=== PATIENT | male | born 1960 | race Caucasian/White ===

== ENCOUNTER 2020-11-06 13:24 | Observation (INO) | payer OTHER, SELFPAY ==
[2020-11-06] VITALS (7 sets, daily range): BP systolic 120–176; BP diastolic 70–79; PULSE 53–66; RESP 16–20; TEMP 36.1–36.8; O2SAT 96–98; BMI 28.1
--- NOTE | 2020-11-06 | EEG_ITS ---
The waking background activity consists of a moderate voltage 9 to 10 hertz alpha frequency, intermixed anteriorly with low-voltage fast frequencies. Photic stimulation is without activation. Hyperventilation was omitted. No sleep stages identified. No focal, lateralizing, or paroxysmal discharges seen. IMPRESSION: This waking EEG is within normal limits. MD FARSHAD Jo/ROWENA / [id number]
--- NOTE | ~2020-11-06 | MR_ITS ---
EXAMINATION: MRI BRAIN WITHOUT CONTRAST MRA HEAD WITHOUT CONTRAST MRA NECK WITHOUT AND WITH CONTRAST CLINICAL INFORMATION: Syncope. COMPARISON: Head CT November 06, 2020. TECHNIQUE: Multiplanar multisequence MRI of the brain was performed without contrast. Head MRA was performed without contrast. Neck MRA was performed without and with contrast. A total of 10 mL Gadavist was intravenously administered. Criteria similar to the NASCET were used to grade the degree of stenosis. FINDINGS: Brain MRI: There is no acute infarction, hemorrhage, mass, or extra-axial fluid collection. A few minimal nonspecific foci of T2/FLAIR hyperintensity are seen in the cerebral white matter. The ventricles are normal in size without hydrocephalus. The major arterial flow voids are preserved at the skull base. The orbital contents appear normal. Neck MRA: On the 2-D [id number] sequence, the imaged portions of the common and internal carotid arteries and vertebral arteries demonstrate normal antegrade flow. On the postcontrast images, the neck arteries are patent without stenosis or occlusion. The left vertebral artery arises directly from the aortic arch. Head MRA: No intracranial aneurysm is seen. The intracranial internal carotid arteries appear normal. The anterior cerebral artery, anterior communicating artery, and middle cerebral arteries appear normal. The intradural vertebral arteries and basilar artery appear normal. The posterior cerebral arteries appear normal. MR/MR head/brain wo con IMPRESSION: No acute intracranial abnormality identified. Major head and neck arteries are patent without stenosis or occlusion.
--- NOTE | ~2020-11-06 | CT_ITS ---
EXAMINATION: CT ANGIOGRAM OF THE CHEST WITH AND WITHOUT CONTRAST (CT PULMONARY ANGIOGRAM FOR PE) CLINICAL INFORMATION: Reason for Exam Syncope. PE? COMPARISON: Chest x-ray December 23, 2013 TECHNIQUE: Prior to contrast administration, noncontrast localization images were obtained. Subsequently, multidetector volumetric imaging was performed from the thoracic inlet to below the diaphragms following the administration of 65 mL Omnipaque 350 intravenous contrast. No contrast reaction reported Sagittal, coronal, and MIP oblique sagittal reformatted images were obtained on the CT workstation, uploaded to PACS, and reviewed. This CT examination was performed using dose optimization techniques as appropriate, variously including the following: *Automated exposure control *Adjustment of mA and/or kV according to patient size (this includes techniques or standardized protocols for targeted exams where dose is matched to indication/reason for exam; i.e. extremities or head) *Use of iterative reconstruction technique Total exam dose-length product 286 mGy-cm FINDINGS: QUALITY OF STUDY/CONTRAST BOLUS: Satisfactory. PULMONARY ARTERIES: No central or segmental pulmonary emboli. THORACIC AORTA: No aneurysm or dissection. LUNG: No focal consolidation, nodules or masses. There is mild mosaic attenuation of lung parenchyma suggesting small airways disease. The central bronchial airways are open. There is no bronchiectasis. PLEURA: No pleural effusion or pneumothorax. MEDIASTINUM: Normal heart size. No pericardial effusion. No hilar or mediastinal lymphadenopathy. No evidence of septal bowing or right heart strain. CHEST WALL/AXILLA: No axillary or internal mammary lymphadenopathy. OSSEOUS STRUCTURES: No acute or suspicious osseous abnormality. UPPER ABDOMEN: Unremarkable. No reflux of contrast into the hepatic veins to suggest elevated right heart pressures. CT/CT angio chest PE protocol IMPRESSION: 1. No evidence of pulmonary embolism. 2. Mild mosaic attenuation of lung parenchyma suggesting small airways disease. There is no bronchiectasis. Central bronchial airways are open. VTE: negative
--- NOTE | ~2020-11-06 | MR_ITS ---
EXAMINATION: MRI BRAIN WITHOUT CONTRAST MRA HEAD WITHOUT CONTRAST MRA NECK WITHOUT AND WITH CONTRAST CLINICAL INFORMATION: Syncope. COMPARISON: Head CT November 06, 2020. TECHNIQUE: Multiplanar multisequence MRI of the brain was performed without contrast. Head MRA was performed without contrast. Neck MRA was performed without and with contrast. A total of 10 mL Gadavist was intravenously administered. Criteria similar to the NASCET were used to grade the degree of stenosis. FINDINGS: Brain MRI: There is no acute infarction, hemorrhage, mass, or extra-axial fluid collection. A few minimal nonspecific foci of T2/FLAIR hyperintensity are seen in the cerebral white matter. The ventricles are normal in size without hydrocephalus. The major arterial flow voids are preserved at the skull base. The orbital contents appear normal. Neck MRA: On the 2-D [id number] sequence, the imaged portions of the common and internal carotid arteries and vertebral arteries demonstrate normal antegrade flow. On the postcontrast images, the neck arteries are patent without stenosis or occlusion. The left vertebral artery arises directly from the aortic arch. Head MRA: No intracranial aneurysm is seen. The intracranial internal carotid arteries appear normal. The anterior cerebral artery, anterior communicating artery, and middle cerebral arteries appear normal. The intradural vertebral arteries and basilar artery appear normal. The posterior cerebral arteries appear normal. MR/MR angio head wo con IMPRESSION: No acute intracranial abnormality identified. Major head and neck arteries are patent without stenosis or occlusion.
--- NOTE | ~2020-11-06 | CT_ITS ---
EXAMINATION: CT HEAD WITHOUT CONTRAST CLINICAL INFORMATION: Syncope. COMPARISON: None TECHNIQUE: Contiguous axial imaging was performed from the skull base to vertex without intravenous administration of contrast. This CT examination was performed using dose optimization techniques as appropriate, variously including the following: *Automated exposure control *Adjustment of mA and/or kV according to patient size (this includes techniques or standardized protocols for targeted exams where dose is matched to indication/reason for exam; i.e. extremities or head) *Use of iterative reconstruction technique DLP: 714 mGy-cm FINDINGS: There is no evidence of acute intracranial hemorrhage or territorial infarction. No abnormal mass effect or midline shift is seen. Maynard to white matter differentiation is well preserved. No extra-axial fluid collections are identified. The ventricles are normal in size. There is no abnormal attenuation within the brain parenchyma. The osseous structures and soft tissues are normal. The mastoid air cells and visualized portions of the paranasal sinuses are well aerated. CT/CT head/brain wo con IMPRESSION: No acute intracranial hemorrhage or mass effect.
--- NOTE | ~2020-11-06 | MR_ITS ---
EXAMINATION: MRI BRAIN WITHOUT CONTRAST MRA HEAD WITHOUT CONTRAST MRA NECK WITHOUT AND WITH CONTRAST CLINICAL INFORMATION: Syncope. COMPARISON: Head CT November 06, 2020. TECHNIQUE: Multiplanar multisequence MRI of the brain was performed without contrast. Head MRA was performed without contrast. Neck MRA was performed without and with contrast. A total of 10 mL Gadavist was intravenously administered. Criteria similar to the NASCET were used to grade the degree of stenosis. FINDINGS: Brain MRI: There is no acute infarction, hemorrhage, mass, or extra-axial fluid collection. A few minimal nonspecific foci of T2/FLAIR hyperintensity are seen in the cerebral white matter. The ventricles are normal in size without hydrocephalus. The major arterial flow voids are preserved at the skull base. The orbital contents appear normal. Neck MRA: On the 2-D [id number] sequence, the imaged portions of the common and internal carotid arteries and vertebral arteries demonstrate normal antegrade flow. On the postcontrast images, the neck arteries are patent without stenosis or occlusion. The left vertebral artery arises directly from the aortic arch. Head MRA: No intracranial aneurysm is seen. The intracranial internal carotid arteries appear normal. The anterior cerebral artery, anterior communicating artery, and middle cerebral arteries appear normal. The intradural vertebral arteries and basilar artery appear normal. The posterior cerebral arteries appear normal. MR/MR angio neck wo/w con IMPRESSION: No acute intracranial abnormality identified. Major head and neck arteries are patent without stenosis or occlusion.
--- NOTE | 2020-11-06 07:47 | ECG_ITS ---
Test Reason : SYNCOPY Blood Pressure : / mmHG Vent. Rate : 065 BPM Atrial Rate : 065 BPM P-R Int : 150 ms QRS Dur : 080 ms QT Int : 402 ms P-R-T Axes : 033 031 028 degrees QTc Int : 418 ms Normal sinus rhythm Normal ECG No previous ECGs available Referred By: Lucio Rader Electronically Signed By:KYLE HIGH
[2020-11-06] MEDS: 0.9 % Sodium Chloride 1,000 ML 999 ML IV (14:07)
[2020-11-06 14:29] LABS: MANUAL DIFF FLAG NO
[2020-11-06 14:40] LABS: Prothrombin Time 11.5 SEC (9.9-13.0)
[2020-11-06 14:42] LABS: Partial Thromboplastin Time 34.9 SEC (24.1-38.0)
[2020-11-06 14:55] LABS: Alanine Aminotransferase 68 U/L (0-40); Alkaline Phosphatase 67 U/L (39-117); Anion Gap 14 (12-20); Aspartate Amino Transferase 40 U/L (5-37); Bilirubin Direct 0.2 mg/dL (0.0-0.5); Bilirubin Total 0.6 mg/dL (0.0-1.0); Blood Urea Nitrogen 9 mg/dL (9-16); Carbon Dioxide 22 mmol/L (22-29); Chloride 107 mmol/L (96-108); Creatinine Clr Calc Pharmacy 106.9; Estimated Glomerular Filt Rate > 60; Glucose Random 94 mg/dL (60-115); Potassium 4.6 mmol/L (3.3-5.1); Sodium 138 mmol/L (135-145); Total Protein 6.9 g/dL (6.5-8.0)
[2020-11-06 14:59] LABS: B Type Natriuretic Peptide < 10 pg/mL (<100); Troponin-I High Sensitivity < 3.5 ng/L (<3.5-35.0)
[2020-11-06] MEDS: iohexoL 350 MG/ML 100 ML INFUS..BTL IV (15:29)
[2020-11-06 15:39] LABS: Basophils Percent Auto 0.3 % (0-2); Eosinophils Absolute Auto 0.1 X10*3/uL (0.0-0.4); Hematocrit 42.9 % (42-52); Hemoglobin 15.1 g/dl (14.0-18.0); Imm Gran Abs Auto 0.06 X10*3/uL (0.00-0.03); Imm Gran Pct Auto 0.5 % (0.0-0.4); Lymphocytes Absolute Auto 1.2 X10*3/uL (1.2-4.9); Mean Corpuscular HGB Conc 35.2 g/dl (31.0-36.0); Mean Corpuscular Hemoglobin 31.7 pg (27.0-33.0); Mean Corpuscular Volume 90.1 fL (80-98); Mean Platelet Volume 9.6 fL (9.4-12.4); Monocytes Percent Auto 8.3 % (2-11); Neutrophils Absolute Auto 9.5 X10*3/uL (2.0-8.3); Neutrophils Percent Auto 79.9 % (45-73); Platelet Count 224 X10*3/uL (160-400); Red Blood Count 4.76 X10*6/uL (4.60-5.80); Red Cell Distribution Width 11.9 % (11.0-16.0); White Blood Count 11.9 X10*3/uL (4.8-10.8)
--- NOTE | 2020-11-06 15:50 | ED.SYNCOPE ---
HPI - Syncope General Chief Complaint: Syncope Stated Complaint: * Time Seen by Provider: 11/06/20 13:36 Source: patient Mode of arrival: ambulatory Limitations: no limitations History of Present Illness HPI narrative: Patient brought to the ED for syncopal episode. Patient was typing on the computer and said all of a sudden patient's head slid over the left patient eyes rolled back and patient became clammy and his lips turn blue. states she did not check for pulse but she began doing CPR 2 rounds and hit the patient and his chest twice and then patient came to himself. Denies patient having any shaking or any urinary/bowel incontinence. Patient does not remember what happened. Patient presently has no complaints. Patient denies having any chest pain, abdominal pain, headache or dizziness, before passing out. Patient states he was typing and then when he woke up EMS was in his face. MD complaint: loss of consciousness Related Data Allergies Allergy/AdvReac Type Severity Reaction Status Date / Time No Known Allergies Allergy Verified 11/06/20 13:51 Review of Systems Review of Systems: Yes all other systems are reviewed and are negative Constitutional: Constitutional: Reports as per HPI and Reports no additional constitutional complaints Eyes: Eyes: Reports as per HPI and Reports no additional eye complaints ENT: Reports system reviewed and no additional complaints, except as documented and Reports as per HPI Cardiovascular: Cardiovascular: Reports as per HPI and Reports no additional cardiovascular complaints Respiratory: Respiratory: Reports as per HPI and Reports no additional respiratory complaints Gastrointestinal: Gastrointestinal: Reports as per HPI and Reports no additional gastrointestinal complaints Musculoskeletal: Musculoskeletal: Reports no additional musculoskeletal complaints and Reports as per HPI Neurologic: Reports system reviewed and no additional complaints, except as documented and Reports as per HPI Psychiatric: Psychiatric: Reports no additional psychiatric complaints and Reports as per HPI [facility] Past Medical History Medical History (Updated 11/06/20 @ 17:09 by JULIUS Linares) No known health problems Social History Social History Alcohol intake: never Smoked in Last 30 Days: No Use of substances other than those prescribed or required for medical reasons: No Advance Directives: No Advance Directives Information Provided: No Physical Exam Vital Signs: Vital Signs: Last Vital Signs Temp 98.1 F 11/06/20 16:59 Pulse 60 11/06/20 16:59 Resp 16 11/06/20 16:59 BP 120/71 11/06/20 16:59 Pulse Ox 96 11/06/20 16:59 Body Mass Index 28.1 Const: General: cooperative, healthy appearing, comfortable, no acute distress, well developed, alert, awake and Physically active Orientation/consciousness: patient oriented x3 HENMT: Head: Yes normal to inspection, Yes No palpable skull fracture present, Yes normocephalic and Yes atraumatic Eyes: General: appearance normal, both eyes and all related structures Neck: Neck: Yes normal visual inspection, Yes full ROM, Yes no lymphadenopathy, Yes no meningeal signs, Yes trachea midline, Yes supple and No tender Chest: Chest palpation & inspection: normal inspection of the chest and normal palpation of entire chest wall Resp: Effort & Inspection: normal respiratory effort and able to speak in complete sentences Cardio: Jugular venous distension: no JVD Heart sounds: S1 normal heart sound present and S2 normal heart sound present GI: Inspection: Yes normal to inspection and No abdominal wall ecchymosis Palpation (GI): Soft to palpation, not firm, nontender, no guarding and not rigid : General: No CVA tenderness and Yes no CVA tenderness Back/Spine/Pelvis: Back: no CVA tenderness, No CVA tenderness and No back tenderness Skin: General skin exam: no rashes or lesions noted and elasticity normal Neuro: Other: Negative for facial droop. Negative for slurred speech. All extremities equal strength 5+. [id number] rapid hand movement intact. General: patient oriented x3, gait normal, no meningeal signs and CN's II-XI intact bilaterally Cranial nerves: Yes CN's II-XII intact bilaterally Extrem: General: Yes normal to inspection and Yes full ROM Psych: Appearance: grossly normal, well kempt and not disheveled Course Course Course Narrative: Sound like syncopal episode. Unknown if patient actually and came back due to no pulse P check but . But due to blue lips patient will have chest CTA and EKG. Head CT ordered. Negative for any neuro exam. Patient presently denies any complaints. Reevaluation(s) Reevaluation #1: EKG negative for STEMI. Head CT normal. Chest CT negative for PE. COVID swab negative. Labs are normal. Patient will be admitted to the hospital for syncope. Hospitalist made aware. Time: 17:08 MDM - Syncope [facility] Narrative Medical decision making narrative: Syncope Lab Data Result diagrams: 11/06/20 14:23 11/06/20 14:23 Labs: Lab Results 11/06/20 11/06/20 11/06/20 Range/Units 14:23 14:23 14:23 WBC 11.9 H (4.8-10.8) X10*3/uL RBC 4.76 (4.60-5.80) X10*6/uL Hgb 15.1 (14.0-18.0) g/dl Hct 42.9 (42-52) % MCV 90.1 (80-98) fL MCH 31.7 (27.0-33.0) pg MCHC 35.2 (31.0-36.0) g/dl RDW 11.9 (11.0-16.0) % Plt Count 224 (160-400) X10*3/uL MPV 9.6 (9.4-12.4) fL Immature Gran % (Auto) 0.5 H (0.0-0.4) % Neut % (Auto) 79.9 H (45-73) % Lymph % (Auto) 10.0 L (20-40) % Gooding % (Auto) 8.3 (2-11) % Eos % (Auto) 1.0 (0-4) % Baso % (Auto) 0.3 (0-2) % Lymph # (Auto) 1.2 (1.2-4.9) X10*3/uL Gooding # (Auto) 1.0 (0.1-1.2) X10*3/uL Eos # (Auto) 0.1 (0.0-0.4) X10*3/uL Baso # (Auto) 0.0 (0.0-0.2) X10*3/uL Abs Immat Gran (auto) 0.06 H (0.00-0.03) X10*3/uL Absolute Neuts (auto) 9.5 H (2.0-8.3) X10*3/uL Absolute Nucleated RBC 0.000 (0.0-0.012) X10*3/uL Nucleated RBC % (auto) 0.0 (0.0-0.2) /100WBC PT 11.5 (9.9-13.0) SEC INR 1.0 (0.9-1.1) APTT 34.9 (24.1-38.0) SEC Sodium 138 (135-145) mmol/L Potassium 4.6 (3.3-5.1) mmol/L Chloride 107 (96-108) mmol/L Carbon Dioxide 22 (22-29) mmol/L Anion Gap 14 (12-20) BUN 9 (9-16) mg/dL Creatinine 0.77 (0.5-1.4) mg/dL Estim Creat Clear Calc 106.9 Estimated GFR > 60 Random Glucose 94 (60-115) mg/dL Calcium 9.0 (8.4-10.2) mg/dL Total Bilirubin 0.6 (0.0-1.0) mg/dL Direct Bilirubin 0.2 (0.0-0.5) mg/dL AST 40 H (5-37) U/L ALT 68 H (0-40) U/L Alkaline Phosphatase 67 (39-117) U/L Troponin I High Sens (<3.5-35.0) ng/L B-Natriuretic Peptide (<100) pg/mL Total Protein 6.9 (6.5-8.0) g/dL Albumin 4.0 (3.5-5.0) g/dL 11/06/20 Range/Units 14:23 WBC (4.8-10.8) X10*3/uL RBC (4.60-5.80) X10*6/uL Hgb (14.0-18.0) g/dl Hct (42-52) % MCV (80-98) fL MCH (27.0-33.0) pg MCHC (31.0-36.0) g/dl RDW (11.0-16.0) % Plt Count (160-400) X10*3/uL MPV (9.4-12.4) fL Immature Gran % (Auto) (0.0-0.4) % Neut % (Auto) (45-73) % Lymph % (Auto) (20-40) % Gooding % (Auto) (2-11) % Eos % (Auto) (0-4) % Baso % (Auto) (0-2) % Lymph # (Auto) (1.2-4.9) X10*3/uL Gooding # (Auto) (0.1-1.2) X10*3/uL Eos # (Auto) (0.0-0.4) X10*3/uL Baso # (Auto) (0.0-0.2) X10*3/uL Abs Immat Gran (auto) (0.00-0.03) X10*3/uL Absolute Neuts (auto) (2.0-8.3) X10*3/uL Absolute Nucleated RBC (0.0-0.012) X10*3/uL Nucleated RBC % (auto) (0.0-0.2) /100WBC PT (9.9-13.0) SEC INR (0.9-1.1) APTT (24.1-38.0) SEC Sodium (135-145) mmol/L Potassium (3.3-5.1) mmol/L Chloride (96-108) mmol/L Carbon Dioxide (22-29) mmol/L Anion Gap (12-20) BUN (9-16) mg/dL Creatinine (0.5-1.4) mg/dL Estim Creat Clear Calc Estimated GFR Random Glucose (60-115) mg/dL Calcium (8.4-10.2) mg/dL Total Bilirubin (0.0-1.0) mg/dL Direct Bilirubin (0.0-0.5) mg/dL AST (5-37) U/L ALT (0-40) U/L Alkaline Phosphatase (39-117) U/L Troponin I High Sens < 3.5 (<3.5-35.0) ng/L B-Natriuretic Peptide < 10 (<100) pg/mL Total Protein (6.5-8.0) g/dL Albumin (3.5-5.0) g/dL ECG Data Interpretation: Normal sinus rhythm. Normal EKG Discharge Plan Discharge Clinical Impression: Syncope Patient Disposition: Admitted As Inpatient
[2020-11-06 16:43] LABS: Influenza A PCR NEGATIVE (Negative); Influenza B PCR NEGATIVE (Negative); Resp Syncy Virus RNA Qual PCR NEGATIVE (Negative); SARS COV2 PCR INHOUSE NEGATIVE (Negative)
--- NOTE | 2020-11-06 17:20 | PM.IMHP ---
History of Present Illness Date of Service: 11/06/20 <Josephine Bella NP - Last Filed: 11/06/20 18:15> Chief Complaint: Syncope <Josephine Bella NP - Last Filed: 11/06/20 18:15> 60 year old man presenting after an episode of syncope at home. the patient reports that he is fairly active he walks about 30-45 minutes today, he works full-time, he recently lost about 15 lb, he does not drink heavily or smoke cigarettes. Patient reported that he had been in his usual state of health and had been feeling fine. He got up around 07:00 o'clock. He started working on his computer. His went to do her hair and when she came back around 01:00 o'clock she went in the room to check on him and noted that his arm was shaking and then suddenly his head fell to his right shoulder, his eyes appear to be open but blank and his lips were blue. The patient's said that she hit his chest about 4 times in gave him some breaths and the entire episode likely lasted about 1 minutes. She denied any loss of bowel or bladder, vomiting. The patient does not remember having any symptoms prior to this happening and does not remember anything. Apparently the patient did wake up groggy but he knew what was going on and did not seem postictal. He has no significant medical problems he has only on a multivitamin. 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 Denied chest pain, shortness of breath, nausea, vomiting, diarrhea. His vital signs are stable,labs within acceptable limits. He received a liter of normal saline in the ED. He will be placed on observation for further management of syncope. <Josephine Bella NP - Last Filed: 11/06/20 18:15> Review of Systems Review of Systems: Denies any recent fever chills or decrease in appetite respiratory denies any shortness of breath coverage production cardiovascular denied chest pain gastrointestinal denies any dysphagia abdominal pain nausea vomiting or diarrhea genitourinary denies any dysuria frequency or hematuria musculoskeletal denies any joint pain or swelling neuropsych denies any weakness or seizures all other systems reviewed are negative <Josephine Bella NP - Last Filed: 11/06/20 18:15> [facility] Medical History: Medical History (Updated 11/20/20 @ 16:43 by Rian Sequeira) Arthritis <Josephine Bella NP - Last Filed: 11/06/20 18:15> Family History: Family History (Updated 11/07/20 @ 10:28 by Kehinde Hoyt MD) Father Cardiomyopathy, Onset Age: 54 <Josephine Bella NP - Last Filed: 11/06/20 18:15> Social History: Social History Housing: House Alcohol intake: never Patient Tobacco Use Status: Never used Tobacco service: No Current occupational status: employed Current occupation: registered nurse. <Josephine Bella NP - Last Filed: 11/06/20 18:15> Meds Allergies/Adverse reactions: Allergies Allergy/AdvReac Type Severity Reaction Status Date / Time No Known Allergies Allergy Verified 11/20/20 16:31 <Josephine Bella NP - Last Filed: 11/06/20 18:15> Home medications: Home Medications Medication Instructions Recorded Confirmed Last Taken Type glucosamine sulfate 500 1 cap PO DAILY 11/06/20 11/09/20 11/06/20 History mg-chondroitin 250 mg-msm 250 mg capsule multivitamin 1 tab PO DAILY 11/06/20 11/09/20 11/06/20 History <Josephine Bella NP - Last Filed: 11/06/20 18:15> Physical Exam Vital Signs and Narrative: Vital Signs: Last Vital Signs Temp 98.1 F 11/06/20 16:59 Pulse 60 11/06/20 16:59 Resp 16 11/06/20 16:59 BP 120/71 11/06/20 16:59 Pulse Ox 96 11/06/20 16:59 Body Mass Index 28.1 <Josephine Bella NP - Last Filed: 11/06/20 18:15> Appearing in no acute distress head is normocephalic atraumatic eyes pupils are PERRLA sclera is anicteric mouth throat mucous membranes are intact and moist neck is supple no lymphadenopathy, no JVD noted lung sounds are clear to auscultation heart regular rate rhythm, clear S1, S2 positive bowel sounds, abdomen is soft, nontender neuro patient is alert x3, no focal deficits <Josephine Bella NP - Last Filed: 11/06/20 18:15> Results Labs CBC and Chem 7: : 11/07/20 06:26 11/08/20 06:12 <Josephine Bella NP - Last Filed: 11/06/20 18:15> Labs: Laboratory Results - last 24 hr 11/06/20 11/06/20 11/06/20 14:23 14:23 14:23 MCV 90.1 MCH 31.7 MCHC 35.2 RDW 11.9 Plt Count 224 MPV 9.6 Immature Gran % (Auto) 0.5 H Neut % (Auto) 79.9 H Lymph % (Auto) 10.0 L [place] % (Auto) 8.3 Eos % (Auto) 1.0 Baso % (Auto) 0.3 Lymph # (Auto) 1.2 [place] # (Auto) 1.0 Eos # (Auto) 0.1 Baso # (Auto) 0.0 Abs Immat Gran (auto) 0.06 H Absolute Neuts (auto) 9.5 H Absolute Nucleated RBC 0.000 Nucleated RBC % (auto) 0.0 PT 11.5 INR 1.0 APTT 34.9 Anion Gap 14 Estim Creat Clear Calc 106.9 Estimated GFR > 60 Random Glucose 94 Calcium 9.0 Total Bilirubin 0.6 Direct Bilirubin 0.2 AST 40 H ALT 68 H Alkaline Phosphatase 67 Troponin I High Sens B-Natriuretic Peptide Total Protein 6.9 Albumin 4.0 Coronavirus (PCR) Influenza Type A (PCR) Influenza Type B (PCR) RSV RNA Qual (PCR) 11/06/20 11/06/20 14:23 14:23 MCV MCH MCHC RDW Plt Count MPV Immature Gran % (Auto) Neut % (Auto) Lymph % (Auto) [place] % (Auto) Eos % (Auto) Baso % (Auto) Lymph # (Auto) [place] # (Auto) Eos # (Auto) Baso # (Auto) Abs Immat Gran (auto) Absolute Neuts (auto) Absolute Nucleated RBC Nucleated RBC % (auto) PT INR APTT Anion Gap Estim Creat Clear Calc Estimated GFR Random Glucose Calcium Total Bilirubin Direct Bilirubin AST ALT Alkaline Phosphatase Troponin I High Sens < 3.5 B-Natriuretic Peptide < 10 Total Protein Albumin Coronavirus (PCR) NEGATIVE Influenza Type A (PCR) NEGATIVE Influenza Type B (PCR) NEGATIVE RSV RNA Qual (PCR) NEGATIVE <Josephine Bella NP - Last Filed: 11/06/20 18:15> Imaging Radiologist's Impressions: Impressions Head CT 11/06/20 13:51 IMPRESSION: No acute intracranial hemorrhage or mass effect. Chest CTA 11/06/20 14:11 IMPRESSION: 1. No evidence of pulmonary embolism. 2. Mild mosaic attenuation of lung parenchyma suggesting small airways disease. There is no bronchiectasis. Central bronchial airways are open. VTE: negative <Josephine Bella NP - Last Filed: 11/06/20 18:15> Assessment and Plan (1) Syncope: Status: Deleted <Josephine Bella NP - Last Filed: 11/06/20 18:15> 60 year old man admitted after an episode of syncope with no other significant medical problems Syncope. Cardiogenic versus neurological will monitor on telemetry for arrhythmia Orthostatic blood pressures Urine toxicology EEG Urinalysis IV fluids May consider MRI, echocardiogram after patient seen by Cardiology and Nephrology Mild transaminitis. Unknown etiology Did have some alcohol last night but does not drink on a regular basis No viral symptoms Follow DVT prophylaxis with Lovenox <Josephine Bella NP - Last Filed: 11/06/20 18:15> 60 year old man admitted after an episode of syncope with no other significant medical problems Syncope. Cardiogenic versus neurological will monitor on telemetry for arrhythmia Orthostatic blood pressures Urine toxicology EEG Urinalysis IV fluids May consider MRI, echocardiogram after patient seen by Cardiology and Nephrology Mild transaminitis. Unknown etiology Did have some alcohol last night but does not drink on a regular basis No viral symptoms Follow DVT prophylaxis with Lovenox I saw and examined patient and discussed findings, assessment, plan and disposition with midlevel provider and I agree with the above. <Red Jo MD - Last Filed: 12/02/20 21:22> Quality Stroke Does the patient have a stroke diagnosis?: No <Josephine Bella NP - Last Filed: 11/06/20 18:15> VTE Prior VTE?: No <Josephine Bella NP - Last Filed: 11/06/20 18:15> VTE Risk Level:: Medical - moderate - high <Josephine Bella NP - Last Filed: 11/06/20 18:15> VTE Device Contraindication: Treatment Not Indicated <Josephine Bella NP - Last Filed: 11/06/20 18:15> VTE Drug Contraindication: N/A - Med Ordered <Josephine Bella NP - Last Filed: 11/06/20 18:15>
--- NOTE | 2020-11-06 18:33 | PC.NURSE ---
call for report, nurse will call back
--- NOTE | 2020-11-06 18:35 | PHA.MEDREC ---
Pharmacy Consult ? Medication Reconciliation Pharmacy has completed the medication reconciliation.
[2020-11-06] MEDS: Enoxaparin Sodium 40 MG/0.4 ML SYRINGE SUBCUT (20:59)
[2020-11-06] MEDS: 0.9 % Sodium Chloride Flush 3 ML SYRINGE IVFLUSH (21:06)
[2020-11-07] VITALS (7 sets, daily range): BP systolic 127–146; BP diastolic 61–74; PULSE 50–68; RESP 18–20; TEMP 36.1–37; O2SAT 95–97; BMI 29.2
[2020-11-07 06:38] LABS: Amphetamine Screen Urine Not Detected (Not Detect); Barbiturates, Urine Not Detected (Not Detect); Benzodiazepines Screen Urine Not Detected (Not Detect); Cannabinoid Screen Urine Not Detected (Not Detect); Cocaine Screen Urine Not Detected (Not Detect); Fentanyl, urine Not Detected (Not Detect); Opiate Screen Urine Not Detected (Not Detect); Phencyclidine Screen Urine Not Detected (Not Detect)
[2020-11-07 06:59] LABS: MANUAL DIFF FLAG NO
[2020-11-07 07:37] LABS: Alanine Aminotransferase 59 U/L (0-40); Albumin Level 3.8 g/dL (3.5-5.0); Alkaline Phosphatase 59 U/L (39-117); Anion Gap 9 (12-20); Aspartate Amino Transferase 31 U/L (5-37); Bilirubin Direct 0.2 mg/dL (0.0-0.5); Bilirubin Total 0.8 mg/dL (0.0-1.0); Blood Urea Nitrogen 9 mg/dL (9-16); Calcium 8.9 mg/dL (8.4-10.2); Carbon Dioxide 27 mmol/L (22-29); Chloride 105 mmol/L (96-108); Estimated Glomerular Filt Rate > 60; Glucose Random 96 mg/dL (60-115); Potassium 4.4 mmol/L (3.3-5.1); Sodium 137 mmol/L (135-145); Total Protein 6.3 g/dL (6.5-8.0)
--- NOTE | 2020-11-07 08:41 | MHC.CM.PN ---
CM met with Patient at bedside and addressed BUI, providing him with the original and placing a copy on the chart. Patient lives in a house with his /HCP and he is functionally independent. Home is the goal for dc and CM has initiated and will follow for dc planning. PCP is Dr. Marco Antonio Ulloa.
[2020-11-07 09:00] LABS: Basophils Percent Auto 0.5 % (0-2); Eosinophils Absolute Auto 0.3 X10*3/uL (0.0-0.4); Eosinophils Percent Auto 3.9 % (0-4); Hematocrit 43.6 % (42-52); Hemoglobin 14.9 g/dl (14.0-18.0); Imm Gran Abs Auto 0.04 X10*3/uL (0.00-0.03); Imm Gran Pct Auto 0.5 % (0.0-0.4); Lymphocytes Absolute Auto 2.4 X10*3/uL (1.2-4.9); Lymphocytes Percent Auto 29.2 % (20-40); Mean Corpuscular HGB Conc 34.2 g/dl (31.0-36.0); Mean Corpuscular Hemoglobin 31.2 pg (27.0-33.0); Mean Corpuscular Volume 91.4 fL (80-98); Mean Platelet Volume 9.9 fL (9.4-12.4); Monocytes Percent Auto 11.9 % (2-11); Neutrophils Absolute Auto 4.4 X10*3/uL (2.0-8.3); Platelet Count 227 X10*3/uL (160-400); Red Blood Count 4.77 X10*6/uL (4.60-5.80); Red Cell Distribution Width 12.2 % (11.0-16.0); White Blood Count 8.2 X10*3/uL (4.8-10.8)
[2020-11-07] MEDS: 0.9 % Sodium Chloride Flush 3 ML SYRINGE IVFLUSH (09:25)
--- NOTE | 2020-11-07 10:23 | P.CONCA_ITS ---
History of Present Illness History of Present Illness Date of Service: 11/07/20 Chief complaint: Syncope Narrative: This is a cardiology consultation regarding syncope. Patient does not have any known cardiac problems. He denies any coronary disease myocardial infarction or cardiomyopathy or in fact any cardiac issues whatsoever. 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 He also walks more than 30 minutes a day without any issues. He was apparently sitting as usual in front of computer. Then when his returned from going outside, she saw him shaking his arm. Then apparently his head was on the right shoulder and then he was appearing blank and lips were blue. Then it seems she gave some chest thumps and breaths. Not clear if he lost a pulse or not. No anginal-type chest pain or shortness of breath or in fact any other cardiac complaints. Today he states that he is actually back to his normal self. Blood pressure is on the higher side but he states that he is not normally a hypertensive. Not a known diabetic. No known coronary disease or in fact any other cardiac issues. His father in his 50s while shoveling snow and autopsy was performed and that apparently showed normal coronaries but thickened heart and he was told to have cardiomyopathy. Review of Systems Review of Systems: Yes all other systems are reviewed and are negative Cardiovascular: Cardiovascular: Reports as per HPI, Reports no additional cardiovascular complaints, Denies acrocyanosis, Denies cool extremities, Denies painful fingertips, Denies chest pain, Denies chest pain at rest, Denies pratima phoresis, Reports syncope, Denies irregular heart rhythm, Denies claudication, Denies leg edema, Denies lightheadedness, Denies palpitations and Denies dyspnea Respiratory: Respiratory: Denies dyspnea Neurologic: Reports syncope Endocrine: Endocrine: Denies palpitations [facility] Past Medical History Medical History (Updated 11/07/20 @ 10:29 by Kehinde Hoyt MD) Arthritis Family History Family History (Updated 11/07/20 @ 10:28 by Kehinde Hoyt MD) Father Cardiomyopathy, Onset Age: 54 Social History Social History Alcohol intake: never Patient Tobacco Use Status: Never used Tobacco Smoked in Last 30 Days: No Use of substances other than those prescribed or required for medical reasons: No Advance Directives: No Advance Directives Information Provided: No service: No Current occupational status: employed [employer] Allergies Allergy/AdvReac Type Severity Reaction Status Date / Time No Known Allergies Allergy Verified 11/06/20 13:51 Active Medications: Current Medications Generic Name Dose Route Start Last Admin Trade Name Stephany PRN Reason Stop Dose Admin Acetaminophen 650 mg 11/06/20 17:29 Acetaminophen 325 Mg Tablet PO Q6H PRN Pain, Mild (Pain Scale 1-3) Enoxaparin Sodium 40 mg 11/06/20 19:00 11/06/20 20:59 Enoxaparin Sodium 40 Mg/0.4 Ml Syringe SUBCUT 40 mg Q24H ASHWIN Administration Ondansetron HCl 4 mg 11/06/20 17:29 Ondansetron Hcl 4 Mg/2 Ml Vial IVPUSH Q8H PRN Nausea and Vomiting Sodium Chloride 3 ml 11/07/20 00:00 11/07/20 09:25 0.9 % Sodium Chloride Flush 3 Ml Syringe IVFLUSH 3 ml QSHIFT ASHWIN Administration Home Medications Medication Instructions Recorded Confirmed Last Taken Type glucosamine sulfate 500 1 cap PO DAILY 11/06/20 11/06/20 11/06/20 History mg-chondroitin 250 mg-msm 250 mg capsule multivitamin 1 tab PO DAILY 11/06/20 11/06/20 11/06/20 History Physical Exam Vital Signs: Vital Signs: Last Vital Signs Temp 98.3 F 11/06/20 23:25 Pulse 61 11/06/20 23:54 Resp 19 11/06/20 23:54 BP 176/79 H 11/06/20 23:54 Pulse Ox 98 11/06/20 23:54 Body Mass Index 29.2 Const: General: cooperative and no acute distress HENMT: Other: Unremarkable Neck: Neck: Yes normal visual inspection Chest: Chest palpation & inspection: normal inspection of the chest Resp: Auscultation: clear to auscultation bilaterally, no crackles and no wheezes Cardio: Jugular venous distension: no JVD Palpation: normal PMI Heart sounds: S1 normal heart sound present, S2 normal heart sound present, no gallops, no murmurs and no rubs GI: Palpation (GI): Soft to palpation Back/Spine/Pelvis: Other: unremarkable Skin: General skin exam: no rashes or lesions noted Neuro: Cranial nerves: Yes Other cranial nerve findings present Extrem: General: Yes no clubbing, cyanosis or edema Psych: Mental Status: other Results Labs and Meds Result diagrams: 11/07/20 06:26 11/07/20 06:26 Lab results: Laboratory Results - last 24 hr 11/06/20 11/06/20 11/06/20 14:23 14:23 14:23 WBC 11.9 H RBC 4.76 Hgb 15.1 Hct 42.9 MCV 90.1 MCH 31.7 MCHC 35.2 RDW 11.9 Plt Count 224 MPV 9.6 Immature Gran % (Auto) 0.5 H Neut % (Auto) 79.9 H Lymph % (Auto) 10.0 L [place] % (Auto) 8.3 Eos % (Auto) 1.0 Baso % (Auto) 0.3 Lymph # (Auto) 1.2 [place] # (Auto) 1.0 Eos # (Auto) 0.1 Baso # (Auto) 0.0 Abs Immat Gran (auto) 0.06 H Absolute Neuts (auto) 9.5 H Absolute Nucleated RBC 0.000 Nucleated RBC % (auto) 0.0 PT 11.5 INR 1.0 APTT 34.9 Sodium 138 Potassium 4.6 Chloride 107 Carbon Dioxide 22 Anion Gap 14 BUN 9 Creatinine 0.77 Estim Creat Clear Calc 106.9 Estimated GFR > 60 Random Glucose 94 Calcium 9.0 Total Bilirubin 0.6 Direct Bilirubin 0.2 AST 40 H ALT 68 H Alkaline Phosphatase 67 Troponin I High Sens B-Natriuretic Peptide Total Protein 6.9 Albumin 4.0 Urine Opiates Screen Urine Fentanyl Screen Ur Barbiturates Screen Ur Phencyclidine Scrn Ur Amphetamines Screen U Benzodiazepines Scrn Urine Cocaine Screen U Marijuana (THC) Screen Coronavirus (PCR) Influenza Type A (PCR) Influenza Type B (PCR) RSV RNA Qual (PCR) 11/06/20 11/06/20 11/07/20 14:23 14:23 05:44 WBC RBC Hgb Hct MCV MCH MCHC RDW Plt Count MPV Immature Gran % (Auto) Neut % (Auto) Lymph % (Auto) [place] % (Auto) Eos % (Auto) Baso % (Auto) Lymph # (Auto) [place] # (Auto) Eos # (Auto) Baso # (Auto) Abs Immat Gran (auto) Absolute Neuts (auto) Absolute Nucleated RBC Nucleated RBC % (auto) PT INR APTT Sodium Potassium Chloride Carbon Dioxide Anion Gap BUN Creatinine Estim Creat Clear Calc Estimated GFR Random Glucose Calcium Total Bilirubin Direct Bilirubin AST ALT Alkaline Phosphatase Troponin I High Sens < 3.5 B-Natriuretic Peptide < 10 Total Protein Albumin Urine Opiates Screen Not Detected Urine Fentanyl Screen Not Detected Ur Barbiturates Screen Not Detected Ur Phencyclidine Scrn Not Detected Ur Amphetamines Screen Not Detected U Benzodiazepines Scrn Not Detected Urine Cocaine Screen Not Detected U Marijuana (THC) Screen Not Detected Coronavirus (PCR) NEGATIVE Influenza Type A (PCR) NEGATIVE Influenza Type B (PCR) NEGATIVE RSV RNA Qual (PCR) NEGATIVE 11/07/20 11/07/20 06:26 06:26 WBC 8.2 RBC 4.77 Hgb 14.9 Hct 43.6 MCV 91.4 MCH 31.2 MCHC 34.2 RDW 12.2 Plt Count 227 MPV 9.9 Immature Gran % (Auto) 0.5 H Neut % (Auto) 54.0 Lymph % (Auto) 29.2 [place] % (Auto) 11.9 H Eos % (Auto) 3.9 Baso % (Auto) 0.5 Lymph # (Auto) 2.4 [place] # (Auto) 1.0 Eos # (Auto) 0.3 Baso # (Auto) 0.0 Abs Immat Gran (auto) 0.04 H Absolute Neuts (auto) 4.4 Absolute Nucleated RBC 0.000 Nucleated RBC % (auto) 0.0 PT INR APTT Sodium 137 Potassium 4.4 Chloride 105 Carbon Dioxide 27 Anion Gap 9 L BUN 9 Creatinine 0.79 Estim Creat Clear Calc 106.0 Estimated GFR > 60 Random Glucose 96 Calcium 8.9 Total Bilirubin 0.8 Direct Bilirubin 0.2 AST 31 ALT 59 H Alkaline Phosphatase 59 Troponin I High Sens B-Natriuretic Peptide Total Protein 6.3 L Albumin 3.8 Urine Opiates Screen Urine Fentanyl Screen Ur Barbiturates Screen Ur Phencyclidine Scrn Ur Amphetamines Screen U Benzodiazepines Scrn Urine Cocaine Screen U Marijuana (THC) Screen Coronavirus (PCR) Influenza Type A (PCR) Influenza Type B (PCR) RSV RNA Qual (PCR) ECG Interpretation: EKG shows sinus rhythm at 65/Min; no significant ST-T changes; normal ID/QTc. Telemetry shows sinus rhythm. Imaging Radiologist's impression: Impressions Head CT 11/06/20 13:51 IMPRESSION: No acute intracranial hemorrhage or mass effect. Chest CTA 11/06/20 14:11 IMPRESSION: 1. No evidence of pulmonary embolism. 2. Mild mosaic attenuation of lung parenchyma suggesting small airways disease. There is no bronchiectasis. Central bronchial airways are open. VTE: negative Assessment and Plan (1) Syncope and collapse: Status: Acute Uncertain etiology for patient's symptoms. Possibilities include felicia-arrhythmias, tachy-arrhythmia, transient ischemic attack, seizure among others. In the chest CT scan, described to have normal heart size, no pericardial effusion. We will get a formal echocardiogram for further evaluation. Continue telemetry monitoring. He also needs further brain imaging including MRI of brain/MRA of neck. Neurology consultation is pending. We will follow up with you. Procedures Date of Service Date of Service: 11/07/20
--- NOTE | 2020-11-07 10:30 | CA_ITS ---
Transthoracic Echocardiogram Patient (Last, First, Middle): Jerrell Kauffman Walter Gender: Male Date of : 1960 Age: 60 Procedure Date: 11/07/2020 Procedure Type: Transthoracic Echocardiogram Location: [facility] [place] Height: 170.18 cm Weight: 81.65 kg BSA: 1.93 m2 Heart Rate: bpm BP: 176 / 79 mmHg Area Sales Manager: Referring MD: Kehinde Hoyt MD Symptoms: Syncope Study Quality: Fair ECG Rhythm: Sinus Conclusions: - The left ventricular systolic function is normal. The visually estimated ejection fraction is between 65-70%. - No obvious valvular pathology seen on this study. Findings Left Ventricle Normal left ventricular cavity size. There is normal left ventricular wall thickness. The left ventricular systolic function is normal. The visually estimated ejection fraction is between 65-70%. There is no evidence of regional wall motion abnormalities. Diastolic function is normal for age. Right Ventricle Normal right ventricular cavity size and systolic function. Atria Both atria are normal in size. Aortic Valve There is a normal trileaflet aortic valve. There is no aortic valve stenosis. There is trace (trivial) aortic valve regurgitation. Mitral Valve The mitral valve appears normal. There is no mitral valve regurgitation. There is no mitral valve stenosis. Pulmonic Valve The pulmonic valve was not well visualized. There is trace pulmonic valve regurgitation. Tricuspid Valve Normal tricuspid valve structure. There is trace tricuspid valve regurgitation. The pulmonary artery systolic pressure is normal. Great Vessels The aortic annulus, sinuses of valsalva, and asc aorta are normal in size. Venous The inferior vena cava is normal in size and collapses greater than 50% with inspiration. Pericardium/Pleural There is no evidence of pericardial effusion. Prior Study Comparison No prior study available for comparison. Recommendations, Care & Conclusions No obvious valvular pathology seen on this study. Measurements 2D Linear Measurements IVSd: 1.13 0.6-0.9/0.6-1.0 cm LVIDd: 4.53 3.9-5.3/4.2-5.9 cm LVIDd Index: 2.35 2.4-3.2/2.2-3.1 cm/m2 LVIDs: 2.51 2.0-3.6 cm LVPWd: 1.04 0.7-1.1 cm Ao Root: 2.90 2.1-3.5 cm LA Diam: 3.20 2.7-3.8/3.0-4.0 cm LAIDs Index: 1.66 1.5-2.3 cm/m2 LV Mass: 216.12 67-162/88-224 g LV Mass Index: 111.98 43-95/49-115 g/m2 LVOT Diam: 2.10 3.0+(-)1.3 cm Mitral Valve MV Pk E: 0.86 MV PK A: 0.76 MV Decel Time: 229.00 E/A: 1.10 E'Lateral: 11.90 E'Medial: 9.90 E/E' Med: 8.70 E/E' Lat: 7.20 PHT: 67.00 MVA PHT: 3.28 Decel [place]: 3.76 Aortic Valve AoV Pk Spencer: 1.88 AoV Mn [place]: 1.25 AoV VTI: 0.39 AoV Pk Grad: 14.00 Aov Mn Grad: 7.00 NATALIE Cont.VTI: 2.04 LVOT LVOT Pk [place]: 1.17 LVOT Mn [place]: 0.66 LVOT VTI: 0.23 LVOT Pk Grad: 5.00 LVOT Mn Grad: 2.00 LVOT Diam: 2.10 LVOT Area: 3.46 Diastolic Function MV Pk E: 0.86 MV Pk A: 0.76 E/A: 1.10 E'Medial: 9.90 E/E' Med: 8.70 E' Laterial: 11.90 E/E' Lat: 7.20 Right Ventricle TAPSE (mm): 28.00 TVS' Spencer: 14.90 Tricuspid Valve TR Pk Spencer: 2.43 TR Pk Grad: 24.00 Great Vessels Aorta Ao Root-2D: 2.90 2.0-3.7 cm Ao Asc: 3.40 2.1-3.4 cm Pulmonary Valve PV Pk Spencer: 1.41 Peak PV Grad: 8.00 Updated in Other Vendor System with Status of Final Kehinde Hoyt MD electronically signed on 11/07/2020 4:03:30 PM with status of Final
--- NOTE | 2020-11-07 10:30 | PM.IMPN ---
Progress Note: A&P (1) Syncope and collapse: Status: Acute Assessment and Plan: 60 year old man admitted after an episode of syncope with no other significant medical problems Syncope.? Cardiogenic versus neurological no further episodes no arrhythmia overnight no Orthostasis Urine toxicology neg EEG pending echo pending MRI/MRA pending Urinalysis IV fluids ? Mild transaminitis.? Unknown etiology, tredning down No viral symptoms Follow DVT prophylaxis with Lovenox Subjective Subjective Date of Service: 11/07/20 Interval History: Follow up syncope OOB bed ambulating no complaints of pain Physical Exam Vital Signs: Vital Signs: Last Vital Signs Temp 98.3 F 11/06/20 23:25 Pulse 61 11/06/20 23:54 Resp 19 11/06/20 23:54 BP 176/79 H 11/06/20 23:54 Pulse Ox 98 11/06/20 23:54 Body Mass Index 29.2 Appearing in no acute distress lung sounds are clear to auscultation heart regular rate rhythm, clear S1, S2 positive bowel sounds, abdomen is soft, nontender neuro patient is alert x3, no focal deficits Objective Data Current Medications Generic Name Dose Route Start Last Admin Trade Name Freq PRN Reason Stop Dose Admin Acetaminophen 650 mg 11/06/20 17:29 Acetaminophen 325 Mg Tablet PO Q6H PRN Pain, Mild (Pain Scale 1-3) Enoxaparin Sodium 40 mg 11/06/20 19:00 11/06/20 20:59 Enoxaparin Sodium 40 Mg/0.4 Ml Syringe SUBCUT 40 mg Q24H ASHWIN Administration Ondansetron HCl 4 mg 11/06/20 17:29 Ondansetron Hcl 4 Mg/2 Ml Vial IVPUSH Q8H PRN Nausea and Vomiting Sodium Chloride 3 ml 11/07/20 00:00 11/07/20 09:25 0.9 % Sodium Chloride Flush 3 Ml Syringe IVFLUSH 3 ml QSHIFT ASHWIN Administration Labs CBC & Chem 7: 11/07/20 06:26 11/07/20 06:26 Labs: Laboratory Results - last 24 hr 11/06/20 11/06/20 11/06/20 14:23 14:23 14:23 MCV 90.1 MCH 31.7 MCHC 35.2 RDW 11.9 Plt Count 224 MPV 9.6 Immature Gran % (Auto) 0.5 H Neut % (Auto) 79.9 H Lymph % (Auto) 10.0 L [place] % (Auto) 8.3 Eos % (Auto) 1.0 Baso % (Auto) 0.3 Lymph # (Auto) 1.2 [place] # (Auto) 1.0 Eos # (Auto) 0.1 Baso # (Auto) 0.0 Abs Immat Gran (auto) 0.06 H Absolute Neuts (auto) 9.5 H Absolute Nucleated RBC 0.000 Nucleated RBC % (auto) 0.0 PT 11.5 INR 1.0 APTT 34.9 Anion Gap 14 Estim Creat Clear Calc 106.9 Estimated GFR > 60 Random Glucose 94 Calcium 9.0 Total Bilirubin 0.6 Direct Bilirubin 0.2 AST 40 H ALT 68 H Alkaline Phosphatase 67 Troponin I High Sens B-Natriuretic Peptide Total Protein 6.9 Albumin 4.0 Urine Opiates Screen Urine Fentanyl Screen Ur Barbiturates Screen Ur Phencyclidine Scrn Ur Amphetamines Screen U Benzodiazepines Scrn Urine Cocaine Screen U Marijuana (THC) Screen Coronavirus (PCR) Influenza Type A (PCR) Influenza Type B (PCR) RSV RNA Qual (PCR) 11/06/20 11/06/20 11/07/20 14:23 14:23 05:44 MCV MCH MCHC RDW Plt Count MPV Immature Gran % (Auto) Neut % (Auto) Lymph % (Auto) [place] % (Auto) Eos % (Auto) Baso % (Auto) Lymph # (Auto) [place] # (Auto) Eos # (Auto) Baso # (Auto) Abs Immat Gran (auto) Absolute Neuts (auto) Absolute Nucleated RBC Nucleated RBC % (auto) PT INR APTT Anion Gap Estim Creat Clear Calc Estimated GFR Random Glucose Calcium Total Bilirubin Direct Bilirubin AST ALT Alkaline Phosphatase Troponin I High Sens < 3.5 B-Natriuretic Peptide < 10 Total Protein Albumin Urine Opiates Screen Not Detected Urine Fentanyl Screen Not Detected Ur Barbiturates Screen Not Detected Ur Phencyclidine Scrn Not Detected Ur Amphetamines Screen Not Detected U Benzodiazepines Scrn Not Detected Urine Cocaine Screen Not Detected U Marijuana (THC) Screen Not Detected Coronavirus (PCR) NEGATIVE Influenza Type A (PCR) NEGATIVE Influenza Type B (PCR) NEGATIVE RSV RNA Qual (PCR) NEGATIVE 11/07/20 11/07/20 06:26 06:26 MCV 91.4 MCH 31.2 MCHC 34.2 RDW 12.2 Plt Count 227 MPV 9.9 Immature Gran % (Auto) 0.5 H Neut % (Auto) 54.0 Lymph % (Auto) 29.2 [place] % (Auto) 11.9 H Eos % (Auto) 3.9 Baso % (Auto) 0.5 Lymph # (Auto) 2.4 [place] # (Auto) 1.0 Eos # (Auto) 0.3 Baso # (Auto) 0.0 Abs Immat Gran (auto) 0.04 H Absolute Neuts (auto) 4.4 Absolute Nucleated RBC 0.000 Nucleated RBC % (auto) 0.0 PT INR APTT Anion Gap 9 L Estim Creat Clear Calc 106.0 Estimated GFR > 60 Random Glucose 96 Calcium 8.9 Total Bilirubin 0.8 Direct Bilirubin 0.2 AST 31 ALT 59 H Alkaline Phosphatase 59 Troponin I High Sens B-Natriuretic Peptide Total Protein 6.3 L Albumin 3.8 Urine Opiates Screen Urine Fentanyl Screen Ur Barbiturates Screen Ur Phencyclidine Scrn Ur Amphetamines Screen U Benzodiazepines Scrn Urine Cocaine Screen U Marijuana (THC) Screen Coronavirus (PCR) Influenza Type A (PCR) Influenza Type B (PCR) RSV RNA Qual (PCR) Quality Stroke Does the patient have a stroke diagnosis?: No VTE Prior VTE?: No VTE Risk Level:: Medical - moderate - high VTE Device Contraindication: Treatment Not Indicated VTE Drug Contraindication: N/A - Med Ordered
--- NOTE | 2020-11-07 12:11 | PM.NEUROCN ---
History of Present Illness Data of Consult Service Date: 11/07/20 Primary Care Provider: Marco Antonio Ulloa MD [facility] Reason for consult: Syncopal episode, possible seizure This is a previously healthy 60-year-old man with nor existing medical problems son no medication. He was sitting on his computer doing some work and his talked with him briefly after she returrned from her had resting appointment and then she went into the kitchen came back a few minutes later to ask him something and found him not able to talk and express himself, his eyes were blazed and his head drop to the right side and he was limp all over. She did not check his pulse. She tried breathing because he was gasping and thumb two-month the chest a few times and he finally woke up. The early childhood aide classroom were called and he was brought 10. Momentarily he was confused and then was okay. There is no previous history of syncope or seizure for cardiac disease. He had been feeling fine area. She did not notice any seizure activity, tongue biting or incontinence. There was no prolonged postictal period. A total down time could be one to one and a half minutes Review of Systems Review of Systems: Denies any recent fever chills or decrease in appetite respiratory denies any shortness of breath coverage production cardiovascular denied chest pain gastrointestinal denies any dysphagia abdominal pain nausea vomiting or diarrhea genitourinary denies any dysuria frequency or hematuria musculoskeletal denies any joint pain or swelling neuropsych denies any weakness or seizures all other systems reviewed are negative Yes all other systems are reviewed and are negative Constitutional: Constitutional: Reports as per HPI and Reports no additional constitutional complaints Eyes: Eyes: Reports as per HPI and Reports no additional eye complaints ENT: Reports system reviewed and no additional complaints, except as documented and Reports as per HPI Cardiovascular: Cardiovascular: Reports as per HPI, Reports no additional cardiovascular complaints, Denies acrocyanosis, Denies cool extremities, Denies painful fingertips, Denies chest pain, Denies chest pain at rest, Denies diaphoresis, Reports syncope, Denies irregular heart rhythm, Denies claudication, Denies leg edema, Denies lightheadedness, Denies palpitations and Denies dyspnea Respiratory: Respiratory: Reports as per HPI, Reports no additional respiratory complaints and Denies dyspnea Gastrointestinal: Gastrointestinal: Reports as per HPI and Reports no additional gastrointestinal complaints Musculoskeletal: Musculoskeletal: Reports no additional musculoskeletal complaints and Reports as per HPI Neurologic: Reports system reviewed and no additional complaints, except as documented, Reports as per HPI and Reports syncope Psychiatric: Psychiatric: Reports no additional psychiatric complaints and Reports as per HPI Endocrine: Endocrine: Denies palpitations PMFSH Past Medical History Medical History (Updated 11/07/20 @ 10:29 by Kehinde Hoyt MD) Arthritis Family History Family History (Updated 11/07/20 @ 10:28 by Kehinde Hoyt MD) Father Cardiomyopathy, Onset Age: 54 Social History Social History Alcohol intake: never Patient Tobacco Use Status: Never used Tobacco Smoked in Last 30 Days: No Use of substances other than those prescribed or required for medical reasons: No Advance Directives: No Advance Directives Information Provided: No service: No Current occupational status: employed Meds Allergies Allergy/AdvReac Type Severity Reaction Status Date / Time No Known Allergies Allergy Verified 11/06/20 13:51 Active Medications: Current Medications Generic Name Dose Route Start Last Admin Trade Name Freq PRN Reason Stop Dose Admin Acetaminophen 650 mg 11/06/20 17:29 Acetaminophen 325 Mg Tablet PO Q6H PRN Pain, Mild (Pain Scale 1-3) Enoxaparin Sodium 40 mg 11/06/20 19:00 11/06/20 20:59 Enoxaparin Sodium 40 Mg/0.4 Ml Syringe SUBCUT 40 mg Q24H ASHWIN Administration Ondansetron HCl 4 mg 11/06/20 17:29 Ondansetron Hcl 4 Mg/2 Ml Vial IVPUSH Q8H PRN Nausea and Vomiting Sodium Chloride 3 ml 11/07/20 00:00 11/07/20 09:25 0.9 % Sodium Chloride Flush 3 Ml Syringe IVFLUSH 3 ml QSHIFT ASHWIN Administration Home Medications Medication Instructions Recorded Confirmed Last Taken Type glucosamine sulfate 500 1 cap PO DAILY 11/06/20 11/06/20 11/06/20 History mg-chondroitin 250 mg-msm 250 mg capsule multivitamin 1 tab PO DAILY 11/06/20 11/06/20 11/06/20 History Physical Exam Vital Signs: Vital Signs: Last Vital Signs Temp 98.3 F 11/06/20 23:25 Pulse 61 11/06/20 23:54 Resp 19 11/06/20 23:54 BP 176/79 H 11/06/20 23:54 Pulse Ox 98 11/06/20 23:54 Body Mass Index 29.2 Const: General: cooperative, healthy appearing, comfortable, no acute distress, well developed, alert, awake and Physically active Orientation/consciousness: patient oriented x3 HENMT: Other: Unremarkable Head: Yes normal to inspection, Yes No palpable skull fracture present, Yes normocephalic and Yes atraumatic Eyes: General: appearance normal, both eyes and all related structures Neck: Neck: Yes normal visual inspection, Yes full ROM, Yes no lymphadenopathy, Yes no meningeal signs, Yes trachea midline, Yes supple and No tender Chest: Chest palpation & inspection: normal inspection of the chest and normal palpation of entire chest wall Resp: Effort & Inspection: normal respiratory effort and able to speak in complete sentences Auscultation: clear to auscultation bilaterally, no crackles and no wheezes Cardio: Jugular venous distension: no JVD Palpation: normal PMI Heart sounds: S1 normal heart sound present, S2 normal heart sound present, no gallops, no murmurs and no rubs GI: Inspection: Yes normal to inspection and No abdominal wall ecchymosis Palpation (GI): Soft to palpation, not firm, nontender, no guarding and not rigid : General: No CVA tenderness and Yes no CVA tenderness Back/Spine/Pelvis: Other: unremarkable Back: no CVA tenderness, No CVA tenderness and No back tenderness Skin: General skin exam: no rashes or lesions noted and elasticity normal Neuro: Other: Normal neurological examination with no focal findings General: patient oriented x3, gait normal, no meningeal signs and CN's II-XI intact bilaterally Cranial nerves: Yes CN's II-XII intact bilaterally and Yes Other cranial nerve findings present Extrem: General: Yes normal to inspection, Yes full ROM and Yes no clubbing, cyanosis or edema Psych: Appearance: grossly normal, well kempt and not disheveled Mental Status: other Results Labs CBC & Chem 7: 11/07/20 06:26 11/07/20 06:26 Labs: Short CBC 11/06/20 11/07/20 Range/Units 14:23 06:26 WBC 11.9 H 8.2 (4.8-10.8) X10*3/uL Hgb 15.1 14.9 (14.0-18.0) g/dl Hct 42.9 43.6 (42-52) % Plt Count 224 227 (160-400) X10*3/uL BMP 11/06/20 11/07/20 14:23 06:26 Sodium 138 137 Potassium 4.6 4.4 Chloride 107 105 Carbon Dioxide 22 27 BUN 9 9 Creatinine 0.77 0.79 Calcium 9.0 8.9 Liver Function 11/06/20 11/07/20 Range/Units 14:23 06:26 Total Bilirubin 0.6 0.8 (0.0-1.0) mg/dL Direct Bilirubin 0.2 0.2 (0.0-0.5) mg/dL AST 40 H 31 (5-37) U/L ALT 68 H 59 H (0-40) U/L Alkaline Phosphatase 67 59 (39-117) U/L Albumin 4.0 3.8 (3.5-5.0) g/dL Assessment and Plan (1) Syncope and collapse: Status: Acute Syncopal episode throat out cardiogenic causes. Rule out seizures. Recommendation: EEG, cardiac monitoring, MRI of the brain 60 year old man admitted after an episode of syncope with no other significant medical problems Syncope.? Cardiogenic versus neurological no further episodes no arrhythmia overnight no Orthostasis Urine toxicology neg EEG pending echo pending MRI/MRA pending Urinalysis IV fluids ? Mild transaminitis.? Unknown etiology, tredning down No viral symptoms Follow DVT prophylaxis with Lovenox Procedures Date of Service Date of Service: 11/07/20
[2020-11-07] MEDS: Enoxaparin Sodium 40 MG/0.4 ML SYRINGE SUBCUT (19:23)
[2020-11-08 04:00] VITALS: BP 136/66; PULSE 52; RESP 20; TEMP 36.5; O2SAT 96
[2020-11-08 07:19] VITALS: BP 131/74; PULSE 51; RESP 18; TEMP 36.4; O2SAT 95
[2020-11-08] MEDS: 0.9 % Sodium Chloride Flush 3 ML SYRINGE IVFLUSH (07:56)
[2020-11-08 07:58] VITALS: BP 131/74; PULSE 51
[2020-11-08 07:59] VITALS: BP 124/73; BP 138/73; PULSE 50; PULSE 52
[2020-11-08 08:17] LABS: Anion Gap 13 (12-20); Blood Urea Nitrogen 8 mg/dL (9-16); Calcium 8.6 mg/dL (8.4-10.2); Carbon Dioxide 23 mmol/L (22-29); Chloride 106 mmol/L (96-108); Creatinine Clr Calc Pharmacy 113.1; Estimated Glomerular Filt Rate > 60; Glucose Random 95 mg/dL (60-115); Potassium 4.4 mmol/L (3.3-5.1); Sodium 138 mmol/L (135-145)
--- NOTE | 2020-11-08 10:33 | P.PNCA_ITS ---
Subjective Subjective Date of Service: 11/08/20 Interval history: No further symptoms. Review of Systems Review of Systems Yes all other systems are reviewed and are negative Cardiovascular: Reports as per HPI, Reports no additional cardiovascular complaints, Denies acrocyanosis, Denies cool extremities, Denies painful fingertips, Denies chest pain, Denies chest pain at rest, Denies diaphoresis, Reports syncope, Denies irregular heart rhythm, Denies claudication, Denies leg edema, Denies lightheadedness, Denies palpitations and Denies dyspnea Respiratory: Denies dyspnea Reports syncope Endocrine: Denies palpitations Physical Exam Vital Signs: Last Vital Signs Temp 97.5 F 11/08/20 07:19 Pulse 52 11/08/20 07:59 Resp 18 11/08/20 07:19 BP 124/73 11/08/20 07:59 Pulse Ox 95 11/08/20 07:19 Body Mass Index 29.2 Const General: cooperative and no acute distress HENNE Other: Unremarkable Neck Neck: Yes normal visual inspection Chest Chest palpation & inspection: normal inspection of the chest Resp Auscultation: clear to auscultation bilaterally, no crackles and no wheezes Cardio Jugular venous distension: no JVD Palpation: normal PMI Heart sounds: S1 normal heart sound present, S2 normal heart sound present, no gallops, no murmurs and no rubs GI Palpation (GI): Soft to palpation Back/Spine/Pelvis Other: unremarkable Skin General skin exam: no rashes or lesions noted Neuro Cranial nerves: Yes Other cranial nerve findings present Extrem General: Yes no clubbing, cyanosis or edema Psych Mental Status: other Results Labs and Meds Result diagrams: 11/07/20 06:26 11/08/20 06:12 Lab results: Laboratory Results - last 24 hr 11/08/20 06:12 Sodium 138 Potassium 4.4 Chloride 106 Carbon Dioxide 23 Anion Gap 13 BUN 8 L Creatinine 0.74 Estim Creat Clear Calc 113.1 Estimated GFR > 60 Random Glucose 95 Calcium 8.6 Imaging Radiologist's impression: Impressions Head MRA 11/07/20 12:22 IMPRESSION: No acute intracranial abnormality identified. Major head and neck arteries are patent without stenosis or occlusion. Brain MRI 11/07/20 12:34 IMPRESSION: No acute intracranial abnormality identified. Major head and neck arteries are patent without stenosis or occlusion. Neck MRA 11/07/20 12:50 IMPRESSION: No acute intracranial abnormality identified. Major head and neck arteries are patent without stenosis or occlusion. Progress Note: A&P Assessment and plan (1) Syncope and collapse: Status: Acute Assessment and Plan: Uncertain etiology for patient's symptoms. Possibilities include felicia- arrhythmias, tachy-arrhythmia, transient ischemic attack, seizure among others. In the chest CT scan, described to have normal heart size, no pericardial effusion. Unremarkable echocardiogram. Telemetry shows sinus rhythm. May be discharged from cardiac. We will arrange outpatient stress test, 14 day Holter and sleep study. Fall Risk Details Current Medications: Current Medications Generic Name Dose Route Start Last Admin Trade Name Freq PRN Reason Stop Dose Admin Acetaminophen 650 mg 11/06/20 17:29 Acetaminophen 325 Mg Tablet PO Q6H PRN Pain, Mild (Pain Scale 1-3) Enoxaparin Sodium 40 mg 11/06/20 19:00 11/07/20 19:23 Enoxaparin Sodium 40 Mg/0.4 Ml Syringe SUBCUT 40 mg Q24H ASHWIN Administration Ondansetron HCl 4 mg 11/06/20 17:29 Ondansetron Hcl 4 Mg/2 Ml Vial IVPUSH Q8H PRN Nausea and Vomiting Sodium Chloride 3 ml 11/07/20 00:00 11/08/20 07:56 0.9 % Sodium Chloride Flush 3 Ml Syringe IVFLUSH 3 ml QSHIFT ASHWIN Administration Time Spent With Patient Time: Total time spent is greater than 50% in coordination of care (as documented) at patient's floor/unit and/or counseling patient: Time with patient: less than 15 minutes Progress Note: Quality Stroke Does the patient have a stroke diagnosis?: No Procedures Date of Service Date of Service: 11/08/20
[2020-11-08 11:22] VITALS: BP 131/68; PULSE 50; RESP 17; TEMP 36.1; O2SAT 96
--- NOTE | 2020-11-08 12:30 | P.DS_ITS ---
DS: Providers Provider Date of Service: 11/08/20 Date of admission: 11/06/20 17:28 Date of discharge: 11/08/20 Primary care physician: Marco Antonio Ulloa MD Admitting clinician: Josephine Bella Attending physician on admission: Heri Winn Consults: 11/06/20 18:06 Consult to Cardiology Routine Consulting Provider: Kehinde Hoyt Reason for consultation: syncope Has provider been notified: No Consult to Neurology Routine Consulting Provider: [facility] Reason for consultation: ? seizure Has provider been notified: No Attending physician on discharge: Heri Winn Discharging clinician: Josephine Bella DS: Diagnosis Discharge Diagnosis (1) Syncope and collapse: Status: Acute DS: Medications Discharge Medications Home Medications: Home Medications Medication Instructions Recorded Confirmed glucosamine sulfate 500 1 cap PO DAILY 11/06/20 11/06/20 mg-chondroitin 250 mg-msm 250 mg capsule multivitamin 1 tab PO DAILY 11/06/20 11/06/20 DS: Summary Hospital Course Hospital Course: HP as per admitting provider 60 year old man presenting after an episode of syncope at home. ? the patient reports that he is fairly active he walks about 30-45 minutes today, he works full-time, he recently lost about 15 lb, he does not drink heavily or smoke cigarettes. Patient reported that he had been in his usual state of health and had been feeling fine.? He got up around 07:00 o'clock.? He started working on his computer.? His went to do her hair and when she came back around 01:00 o'clock she went in the room to check on him and noted that his arm was shaking and then suddenly his head fell to his right shoulder, his eyes appear to be open but blank and his lips were blue.? The patient's said that she hit his chest about 4 times in gave him some breaths and the entire episode likely lasted about 1 minutes.? She denied any loss of bowel or bladder, vomiting.? The patient does not remember having any symptoms prior to this happening and does not remember anything.? Apparently the patient did wake up groggy but he knew what was going on and did not seem postictal.? He has no significant medical problems he has only on a multivitamin. 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 Denied chest pain, shortness of breath, nausea, vomiting, diarrhea.? His vital signs are stable,labs within acceptable limits. He received a liter of normal saline in the ED. He will be placed on observation for further management of syncope . Syncope. No further episodes of syncope noted. No obvious etiology. He had MRI, MRA both negative for acute abnormalities. Echocardiogram showed EF of 65-70% with no wall motion abnormalities. EEG was normal. He remained hemodynamically stable. He will follow up with cardiology for stress test, sleep study and holter. Time Spent with Patient Time attestation: Total time spent providing and/or coordinating discharge services: Discharge coordination time: Greater than 30 minutes Quality: Stroke Does the patient have a stroke diagnosis?: No Physical Exam Vital Signs: Vital Signs: Last Vital Signs Temp 97 F 11/08/20 11:22 Pulse 50 11/08/20 11:22 Resp 17 11/08/20 11:22 BP 131/68 11/08/20 11:22 Pulse Ox 96 11/08/20 11:22 Body Mass Index 29.2 Appearing in no acute distress head is normocephalic atraumatic eyes pupils are PERRLA sclera is anicteric mouth throat mucous membranes are intact and moist neck is supple no lymphadenopathy, no JVD noted lung sounds are clear to auscultation heart regular rate rhythm, clear S1, S2 positive bowel sounds, abdomen is soft, nontender neuro patient is alert x3, no focal deficits DS: Data Data Completed and Pending Labs on day of discharge: Laboratory Results - last 24 hr 11/08/20 06:12 Sodium 138 Potassium 4.4 Chloride 106 Carbon Dioxide 23 Anion Gap 13 BUN 8 L Creatinine 0.74 Estim Creat Clear Calc 113.1 Estimated GFR > 60 Random Glucose 95 Calcium 8.6 Discharge Plan Discharge Anticipated Discharge Date/Time: 11/08/20 12:27 Patient Disposition: Home, Self-Care Discharge Diagnosis: Syncope Referrals: Marco Antonio Ulloa MD [Primary Care Provider] - 1 Week Kehinde Hoyt MD [Physician] - 1 Week (Out patient stress test, holter monitor and sleep study ) Discharge Medications: Continued multivitamin Tablet 1 tab PO DAILY RF: 0 glucosamine [id number] 500-250-250 mg Capsule 1 cap PO DAILY RF: 0 Discharge Orders: Discharge Order (Routine); Ordered 11/08/20 Ordered By: Josephine Bella Diet: advance to usual diet Activity on Discharge: As tolerated Stand Alone Forms: Patient Portal Discharge page, Work/School Release Care Plan Goals: No further episodes of syncope Health Concerns: Syncope Plan of Treatment: Follow up with you primary care doctor as needed Return to the ED if you have further episodes of syncope Assessment: See discharge summary Discharge Date/Time: 11/08/20 13:01
--- NOTE | 2020-11-08 12:46 | MHC.CM.PN ---
CM has been medically cleared for dc to home today, no services.
== END 2020-11-08 13:01 | disposition home or self-care (01) ==
LOC: HO.ED 17:09 → HO.EDOVER 17:50 → HO.IMC 18:29
PROVIDERS: Physician Assistant; Admitting Provider Nurse Practitioner Acute Care; Emergency Provider Internal Medicine; PCP Family Medicine; Visit Provider Family Medicine
DX: R55 Syncope and collapse (principal); R74.01 Elevation of levels of liver transaminase levels; I10 Essential (primary) hypertension; Z20.822 Contact with and (suspected) exposure to COVID-19; Z79.899 Other long term (current) drug therapy
CPT/HCPCS: 0241U; 36415; 70450; 70544; 70549; 70551; 71275; 80048; 80053; 80076; 80307; 82248; 83880; 84484; 85025; 85610; 85730; 93005; 93306; 95816; 96361; 96372; 96374; 96375; 99219; 99285; A9585; J1650; Q9967

== ENCOUNTER 2023-04-21 16:45 | Emergency (ER) | payer OTHER, SELFPAY ==
--- NOTE | ~2023-04-21 | XR_ITS ---
EXAMINATION: XR RIBS, RIGHT CLINICAL INFORMATION: Fall, pain. COMPARISON: Chest radiograph 12/23/2013. TECHNIQUE: 3 views of the right ribs were obtained. FINDINGS: Lungs are clear. No consolidation, pneumothorax, or pleural effusion. The cardiomediastinal silhouette and pulmonary vasculature are normal. Osseous structures are unremarkable. Ribs are intact. No fractures are identified. XR/XR ribs RT min 3V w CXR1V IMPRESSION: No acute cardiopulmonary findings. No evidence of displaced rib fractures.
--- NOTE | ~2023-04-21 | CT_ITS ---
EXAMINATION: CT cervical spine wo IV con, CT head/brain wo IV con INDICATION INFORMATION: Reason for Exam fall, unknown head strike, R neck pain COMPARISON: CT head 11/06/2020 TECHNIQUE: Separate noncontrast CT examinations of the head and cervical spine were performed. Coronal and sagittal images were created for each examination at the technologist workstation. This CT examination was performed using dose optimization techniques as appropriate, variously including the following: *Automated exposure control *Adjustment of mA and/or kV according to patient size (this includes techniques or standardized protocols for targeted exams where dose is matched to indication/reason for exam; i.e. extremities or head) *Use of iterative reconstruction technique DLP: 1101 mGy-cm FINDINGS: Head: Mild to moderate global cerebral volume loss with somewhat disproportionate ventriculomegaly relative to the sulci that can be correlated clinically for superimposed commuting hydrocephalus. No territorial loss of summers-white differentiation. Patchy calcific plaque of the carotid siphons. No acute intracranial hemorrhage or extra-axial fluid collection. No mass lesion, significant mass effect, or herniation pattern. Fusiform prominence of several extraocular muscles, most pronounced of the inferior rectus muscles with some intramuscular fat deposition more pronounced on the right, which may be seen in the setting of thyroid eye disease and can be correlated with thyroid function tests. Trace patchy paranasal sinus mucosal thickening. The mastoid air cells are well aerated. Osseous structures are intact. Cervical spine: Motion degraded slightly compromising diagnostic assessment. No prevertebral soft tissue swelling. The craniocervical junction is intact. Straightening of the normal cervical lordosis. There is no significant spondylolisthesis. Vertebral body heights are normal without acute compression fracture or traumatic posterior element subluxation. No suspicious osseous lesion. C6 and C6-C7 disc height loss and mild cervical spondylosis. Please note spinal canal patency is not well assessed on CT in the absence of intrathecal contrast. Normal appearance of the paraspinal soft tissues. Visualized lung apices are clear. Normal appearance of the thyroid gland. CT/CT cervical spine wo IV con IMPRESSION: 1. No CT evidence of acute intracranial injury. 2. Fusiform prominence of several extraocular muscles, most pronounced of the inferior rectus muscles with some intramuscular fat deposition more pronounced on the right, which may be seen in the setting of thyroid eye disease and can be correlated with thyroid function tests. 3. No evidence of acute osseous injury in the cervical spine within limitations of motion artifact.
--- NOTE | ~2023-04-21 | XR_ITS ---
EXAMINATION: XR LUMBOSACRAL SPINE CLINICAL INFORMATION: Fall. Pain. COMPARISON: None available. TECHNIQUE: Three views of the lumbosacral spine. FINDINGS: No evidence of acute compression deformity or traumatic subluxation. Moderate to severe intervertebral disc height loss and facet arthropathy at L5-S1. Large multilevel anterior osteophytes. Symmetric SI joints. Pubic symphysis and pelvic rami are maintained. No significant paraspinal soft tissue abnormality. XR/XR lumbar spine 2-3V IMPRESSION: 1. No acute compression deformity or malalignment. 2. Moderate to severe lumbar spondylosis at L5-S1. 3. Large multilevel anterior osteophytes.
[2023-04-21 17:32] VITALS: BP 181/89; PULSE 60; RESP 16; TEMP 36.3; O2SAT 97; BMI 31.0
--- NOTE | 2023-04-21 17:33 | ED.FALL ---
[facility] - Fall General Chief Complaint: Fall Stated Complaint: fell 04/20, nausea and kidney pain Time Seen by Provider: 04/21/23 22:43 Source: patient Mode of arrival: ambulatory History of Present Illness HPI Narrative: 62-year-old male who presents after having fallen at approximately 17:30 on the night of 04/20, denies any loss of consciousness, does not take any prescription medications and denies having struck the edge of a hand rail or a step. States that he took some Aleve this morning and then had some episodes of feeling a little bit nauseous with lightheadedness and denies any other medical history. Related Data Home Medications Medication Instructions Recorded Confirmed glucosamine sulfate 500 1 cap PO DAILY 11/06/20 11/09/20 mg-chondroitin 250 mg-msm 250 mg capsule multivitamin 1 tab PO DAILY 11/06/20 11/09/20 Allergies Allergy/AdvReac Type Severity Reaction Status Date / Time No Known Allergies Allergy Verified 04/21/23 17:35 Review of Systems Review of Systems: Pertinent positives and negatives as stated in HPI [facility] Past Medical History Source: nursing notes reviewed Medical History Arthritis Family History Family History Father Cardiomyopathy, Onset Age: 54 Social History Social History Housing: House Alcohol intake: never Patient Tobacco Use Status: Never used Tobacco Advance Directives: Yes Advance Directives Information Provided: No Advance Directives on File: No service: No Current occupational status: employed Current occupation: registered nurse. Physical Exam Vital Signs: Vital Signs: Last Vital Signs Temp 97.4 F 04/21/23 17:32 Pulse 60 04/21/23 17:32 Resp 16 04/21/23 17:32 BP 181/89 H 04/21/23 17:32 Pulse Ox 97 04/21/23 17:32 O2 Del Method Room Air 04/21/23 17:32 BMI result Body Mass Index 31.0 VITAL SIGNS: Reviewed. GENERAL: Well developed, well nourished, in no acute distress. HEAD: Normocephalic/atraumatic EYES: PERRLA, EOMI EARS: Ext canals without abnormality NOSE: Nares patent bilateral OROPHARYNX: no oral lesions noted, posterior pharynx clear NECK: Supple, no adenopathy LUNGS: Normal breath sounds. No adventitious sounds or accessory muscle use. SpO2<97> CARDIOVASCULAR: Regular rate and rhythm without noted murmurs ABDOMEN: Soft, non-tender, non-distended with bowel sounds. PELVIS: Stable, nontender BACK/RIGHT FLANK: There is no noted ecchymosis or skin disturbance, no erythema/induration, no obvious crepitus or deformity. Patient does have tenderness to palpation of the posterior lower ribs. MUSCULOSKELETAL: No tenderness, deformities, or effusions noted on gross inspection. EXTREMITIES: No cyanosis, clubbing or edema. SKIN: Inspection of the skin reveals no rashes NEUROLOGIC: Alert and oriented x 4. Strength and sensation to light touch were grossly intact x 4. Course Course Course Narrative: RME:?62 yo male here for evaluation of right flank pain occuring after slip and fall on ice yesterday. states he slipped on ice, fell backwards landing on his right flank. States he does not believe he hit his head however reports right-sided neck pain. No LOC. Not on AC. Workup today with right flank pain and began feeling nauseous and lightheaded around 10:00 a.m.. PE: Right cervical paraspinal muscle tenderness to palpation. right lumbar paraspinal muscle tenderness to palpation. No midline spinous tenderness or step-off deformity. exam nonfocal. Ambulating with steady gait. Labs, xrs and CT ordered in triage. Full HPI, ROS and PE to be performed by the primary ED provider. Medical Decision Making Medical Decision Making MDM Narrative: 62-year-old male with history and clinical presentation, DDX: Soft tissue contusion, musculoskeletal pain, low clinical suspicion for intracranial or cervical spine acute injury I reviewed all investigations and hematologic indices are negative for leukocytosis/left shift/anemia/thrombocytopenia. Coagulation studies are within normal limits. Chemistry indices are negative for any derangements, there is no MAO/electrolyte lipase derangement. CT of the head is negative for intracranial hemorrhage or mass effect and cervical spine CT scan is negative for acute fracture or subluxation. L-spine x-ray negative for acute pathology and rib x-ray series negative for evidence to suggest fracture. I did discuss the sensitivity/specificity chest x-ray for rib fractures. In my interpretation patient likely has soft tissue contusions with associated musculoskeletal pain and the light nausea and lightheadedness are likely associated with the fall. I did provide the patient with strict return precautions and he is otherwise stable for discharge to home. Differential Diagnosis Differential Diagnoses: The differential diagnosis associated with the presentation includes Please see the discussion above Admission/Observation Consideration of admission/observation: Escalation of care including admission/observation considered Please see the discussion above Lab Data MDM Lab Attestation statement: I reviewed the patient's lab results. Please see the discussion above 04/21/23 18:24 04/21/23 18:24 Labs: Lab Results 04/21/23 Range/Units 18:24 WBC 8.0 (4.8-10.8) X10*3/uL RBC 4.80 (4.60-5.80) X10*6/uL Hgb 15.5 (14.0-18.0) g/dl Hct 44.3 (42.0-52.0) % MCV 92.3 (80.0-98.0) fL MCH 32.3 (27.0-33.0) pg MCHC 35.0 (31.0-36.0) g/dl RDW 13.2 (11.0-16.0) % Plt Count 206 (160-400) X10*3/uL MPV 9.1 L (9.4-12.4) fL Immature Gran % (Auto) 0.3 (0.0-0.4) % Neut % (Auto) 60.4 (45-73) % Lymph % (Auto) 25.3 (20-40) % [place] % (Auto) 9.4 (2-11) % Eos % (Auto) 3.8 (0-4) % Baso % (Auto) 0.8 (0-2) % Lymph # (Auto) 2.0 (1.2-4.9) X10*3/uL [place] # (Auto) 0.8 (0.1-1.2) X10*3/uL Eos # (Auto) 0.3 (0.0-0.4) X10*3/uL Baso # (Auto) 0.1 (0.0-0.2) X10*3/uL Abs Immat Gran (auto) 0.02 (0.00-0.03) X10*3/uL Absolute Neuts (auto) 4.8 (2.0-8.3) x10*3/uL Absolute Nucleated RBC 0.000 (0.0-0.012) X10*3/uL Nucleated RBC % (auto) 0.0 (0.0-0.2) /100WBC PT 12.1 (11.1-13.3) SEC INR 1.0 (0.9-1.1) Sodium 135 (135-145) mmol/L Potassium 4.0 (3.3-5.1) mmol/L Chloride 103 (96-108) mmol/L Carbon Dioxide 24 (22-29) mmol/L Anion Gap 12 (12-20) BUN 9 (9-16) mg/dL Creatinine 0.77 (0.5-1.4) mg/dL Estim Creat Clear Calc 109.0 Estimated GFR > 60 Random Glucose 97 (60-115) mg/dL Calcium 9.4 D (8.4-10.2) mg/dL Magnesium 2.2 (1.6-2.6) mg/dL Lipase 29 (8-78) U/L Radiology Impression Discussion of test interpretation with radiology: I have reviewed the radiologist's reading. Radiologist Impression: Please see the discussion above External Record Review External record reviewed: Outpatient record, Prior outpatient labs and Prior outpatient radiology Discharge Plan Discharge Clinical Impression: Contusion of soft tissue, Fall, Back pain, Nausea, Light-headedness Patient Disposition: Home, Self-Care Instructions: Contusion in Adults (ED), Lightheadedness (ED), Back Pain (ED), Fall Prevention (ED) Additional Instructions: 1. Resume all home medications as prescribed. 2. Recommend continued use Tylenol/ibuprofen as needed for pain control. 3. Recommend follow-up with your primary care doctor in the next 1-2 days. 4. Do not hesitate to return to the emergency room for any worsening of your symptoms, to include hematuria, significant bruising at the right flank, difficulty breathing. Prescriptions: No Action multivitamin Tablet 1 tab PO DAILY glucosamine [id number]-mum 500-250-250 mg Capsule 1 cap PO DAILY Referrals: Marco Antonio Ulloa MD [Primary Care Provider] -
[2023-04-21 18:28] LABS: MANUAL DIFF FLAG NO
[2023-04-21 18:31] LABS: Basophils Absolute Auto 0.1 X10*3/uL (0.0-0.2); Basophils Percent Auto 0.8 % (0-2); Eosinophils Absolute Auto 0.3 X10*3/uL (0.0-0.4); Eosinophils Percent Auto 3.8 % (0-4); Hematocrit 44.3 % (42.0-52.0); Hemoglobin 15.5 g/dl (14.0-18.0); Imm Gran Abs Auto 0.02 X10*3/uL (0.00-0.03); Imm Gran Pct Auto 0.3 % (0.0-0.4); Lymphocytes Percent Auto 25.3 % (20-40); Mean Corpuscular Hemoglobin 32.3 pg (27.0-33.0); Mean Corpuscular Volume 92.3 fL (80.0-98.0); Mean Platelet Volume 9.1 fL (9.4-12.4); Monocytes Absolute Auto 0.8 X10*3/uL (0.1-1.2); Monocytes Percent Auto 9.4 % (2-11); Neutrophils Absolute Auto 4.8 x10*3/uL (2.0-8.3); Neutrophils Percent Auto 60.4 % (45-73); Platelet Count 206 X10*3/uL (160-400); Red Cell Distribution Width 13.2 % (11.0-16.0)
[2023-04-21 18:34] LABS: Prothrombin Time 12.1 SEC (11.1-13.3)
[2023-04-21 18:41] LABS: Anion Gap 12 (12-20); Blood Urea Nitrogen 9 mg/dL (9-16); Calcium 9.4 mg/dL (8.4-10.2); Carbon Dioxide 24 mmol/L (22-29); Chloride 103 mmol/L (96-108); Estimated Glomerular Filt Rate > 60; Glucose Random 97 mg/dL (60-115); Lipase 29 U/L (8-78); Magnesium 2.2 mg/dL (1.6-2.6); Sodium 135 mmol/L (135-145)
== END 2023-04-21 23:59 | disposition home or self-care (01) ==
PROVIDERS: Physician Assistant Medical; Emergency Provider Student in an Organized Health Care Education/Training Program; PCP Family Medicine
DX: T14.8XXA Other injury of unspecified body region, initial encounter (principal); W00.0XXA Fall on same level due to ice and snow, initial encounter; Y93.9 Activity, unspecified; Y92.9 Unspecified place or not applicable; Y99.9 Unspecified external cause status; R10.9 Unspecified abdominal pain; M54.2 Cervicalgia; M54.9 Dorsalgia, unspecified; R42 Dizziness and giddiness
CPT/HCPCS: 36415; 70450; 71101; 72100; 72125; 80048; 83690; 83735; 85025; 85610; 99282; 99284